=== PATIENT | male | born 1945 | race Caucasian/White ===

== ENCOUNTER 2017-08-25 05:31 | Inpatient (IN) | payer BC, OTHER ==
--- NOTE | 2017-08-25 06:26 | ED Physician Chart ---
ED Chief Complaint/HPI - Patient Information Date Seen:: 08/25/17 Time Seen:: 06:00 Chief Complaint:: numbness lt arm History of Present Illness:: 71 yr old male hx of cva mi in past who woke up at 330 am with numbness or dyscoordination lt arm no headache no dizziness or other c/o"s Allergies:: Allergies Allergy/AdvReac Type Severity Reaction Status Date / Time No Known Allergies Allergy Verified 08/25/17 06:03 Vitals:: Vital Signs - 8 hr 08/25/17 05:33 Temp 96.7 F HR 70 RR 18 BP 131/75 O2 Sat % 100 ED Review of Systems - Review of Systems General/Constitutional: No fever Skin: No skin lesions Eyes: No loss of vision ENT: No earache Neck: No neck pain Cardio Vascular: No chest pain Pulmonary: No SOB GI: No nausea G/U: No dysuria Musculoskeletal: No bone or joint pain Endocrine: No polyuria Hematopoietic: No bruising Allergic/Immuno: No urticaria Neurological: No syncope ED Past Medical History - Past Medical History Past Medical History: HTN, DM, CVA/TIA, Other (mi) Family History: Heart disease, Diabetes Mel[place] Social History: Smoker ED Physical Exam - Physical Examination Head: Atraumatic Eyes: Lids, conjuctiva normal Skin: Nl inspection ENMT: External ears, nose nl Neck: Nontender Respiratory: Nl effort/Exclusion Cardio Vascular: No murmur, gallop, rubs GI: No tenderness/rebounding/guarding Extremities: No tenderness or effusion Neuro/Psych: Alert/oriented, Normal motor strength Misc: Normal back ED Labs/Radiology/EKG Results - Lab Results Results: lt sided dyscoordination lt hand - EKG Interpretations EKG Time:: 05:58 Rate & Rhythm: NSR 68 Comments:: ANTEROSEPTAL MS AGE UNDETERMINED ED Assessment - Assessment General Assessment: LT HAND DYSCOORDINATION ED Septic Shock - . Is Septic Shock (SBP<90, OR Lactate>4 mmol\\L) present?: No - <6hrs of presentation: Vital Signs: Vital Signs - 8 hr 08/25/17 05:33 Temp 96.7 F HR 70 RR 18 BP 131/75 O2 Sat % 100 ED Reassessment (Disposition) - Reassessment Reassessment Condition:: Improved - Diagnosis Diagnosis:: LT HAND DYSCOORDINATION PREVIOUS CVA - Patient Disposition Discharge/Transfer:: Acute Care (other hosp)
[2017-08-25 06:45] LABS: % BASOPHILS 0.9 % (0.0-2.0); % EOSINOPHILS 1.9 % (0.0-5.0); % LYMPHOCYTES 15.8 % (20.0-50.0); % MONOCYTES 7.8 % (2.0-10.0); % NEUTROPHILS 73.6 % (40.0-80.0); BASOPHILE ABSOLUTE 0.1 Th/cumm (0-0.2); EOSINOPHILE ABSOLUTE 0.2 Th/cmm (0.1-0.4); HEMATOCRIT 25.9 % (41.0-60); LYMPHOCYTE ABSOLUTE 1.7 Th/cmm (1.5-3.0); MEAN CELL VOLUME 93.4 fl (80-99); MEAN CORPUSCULAR HEMOGLOBIN 32.5 pg (27.0-31.0); MEAN CORPUSCULAR HGB CONC 34.8 pg (28.0-36.0); MEAN PLATELET VOLUME 7.5 fl; MONOCYTE ABSOLUTE 0.9 Th/cmm (0.3-1.0); NEUTROPHILE ABSOLUTE 8.1 Th/cmm (1.8-8.0); PLATELET COUNT 287 Th/cmm (150-400); RED BLOOD COUNT 2.78 Mil/cmm (3.80-5.80); RED CELL DISTRIBUTION WIDTH 12.1 % (11.5-20.0)
[2017-08-25 07:07] LABS: ALB/GLOB RATIO 1.3 (1.0-1.8); ALBUMIN 3.9 gm/dL (4.2-5.5); ALKALINE PHOSPHATASE 45 U/L (34-104); ANION GAP 12.1 (7.0-16.0); BILIRUBIN,TOTAL 0.4 mg/dL (0.3-1.0); BUN - UREA NITROGEN 15 mg/dL (7-25); CALCIUM SERUM 9.3 mg/dL (8.6-10.3); CARBON DIOXIDE 23.6 mEq/L (21.0-31.0); CHLORIDE 105 mEq/L (98-107); CREATININE - SERUM 0.8 mg/dL (0.7-1.3); GFR AFRICAN-AMERICAN > 60.0 ml/min (>90); GFR NON AFRICAN-AMERICAN > 60.0 ml/min; GLUCOSE 218 mg/dL (70-105); INR 0.93 (0.5-1.4); POTASSIUM SERUM 3.7 mEq/L (3.5-5.1); PROTHROMBIN TIME (TEST) 9.7 SECONDS (9.5-11.5); SGOT 12 U/L (13-39); SGPT/ALT 8 U/L (7-52); SODIUM SERUM 137 mEq/L (136-145); TOTAL PROTEIN,SERUM 6.9 gm/dL (6.0-8.3)
[2017-08-25 07:45] LABS: URINE MICROSCOPIC INDICATED? YES; URINE SOURCE CLEAN C
[2017-08-25 07:48] LABS: URINE BILIRUBIN NEGATIVE (NEGATIVE); URINE BLOOD SMALL (NEGATIVE); URINE GLUCOSE (UA) 250 mg/dL (NEGATIVE); URINE KETONE NEGATIVE (NEGATIVE); URINE LEUKOCYTE ESTERASE NEGATIVE (NEGATIVE); URINE NITRATE NEGATIVE (NEGATIVE); URINE PROTEIN 30 mg/dL (NEGATIVE); URINE UROBILINOGEN 0.2 E.U./dL (0.2 - 1.0)
[2017-08-25 07:49] LABS: URINE CLARITY CLEAR (CLEAR); URINE COLOR YELLOW
[2017-08-25 07:52] LABS: URINE BACTERIA OCCASIONAL /hpf (NONE SEEN); URINE EPITHELIAL CELLS OCCASIONAL /lpf (FEW); URINE WBC 0-2 /hpf (0-5)
[2017-08-25] MEDS ORDERED: INSULIN HUMAN REGULAR 100 UNITS/ML UNIT SUBQ SCH (08:37)
[2017-08-25] MEDS ORDERED: INSULIN ASPART, RECOMBINANT 100 UNITS/ML SUBQ SCH (08:39)
[2017-08-25] MEDS: Enoxaparin 40 mg/0.4 mL 0.4mL Syr SUBQ SCH ×2 (09:22→10:17)
--- NOTE | 2017-08-25 09:41 | Diagnostic Imaging Report ---
Exam: CT examination of brain. HISTORY: Numbness left arm. Total DLP equals 694 CTDI equals 34.8 Findings: Multiple contiguous thin section of the brain were obtained from the base of skull to the vertex without the administration of contrast material, no prior studies available comparison. The study demonstrates prominence of cerebral sulci and ventricles consistent with atrophy. Atherosclerotic vascular changes are noted. There is no evidence for hemorrhage midline shift or edema. The cerebellum is intact. Old lacunar infarct in the left batres radiata noted. There is evidence of sinusitis. Bony calvarium is intact. IMPRESSION: Atrophy, periventricular white matter changes. Old infarct left batres radiata. Sinusitis
[2017-08-25] MEDS: INSULIN ASPART SLIDING SCALE 100 UNITS/ML UNIT SUBQ SCH ×3 (12:49→21:04)
--- NOTE | 2017-08-25 13:23 | History & Physical ---
ADMIT DATE: 08/25/2017 CHIEF COMPLAINT: Numbness of the left upper extremity for few hour duration. 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 No chest pain, no shortness of breath, no nausea, no vomiting, no fever, no chills. The patient evaluated by the ER physician. CT of the head significant for old stroke. The patient admitted to the hospital. Neurologic consultation obtained. The patient resumed his medication and diet. Carotid Doppler ordered. PAST MEDICAL HISTORY: Significant for hypertension, coronary artery disease, diabetes mellitus, hyperlipidemia, strokes. PAST SURGICAL HISTORY: No recent surgery. ALLERGIES: None. MEDICATIONS: Follow admission reconciliation. SOCIAL HISTORY: Ex-smoker, no alcohol, no drugs. FAMILY HISTORY: Noncontributory. REVIEW OF SYSTEMS: RENAL SYSTEM: No history of chronic renal disorder. CARDIOVASCULAR SYSTEM: He has history of coronary artery disease, stent placement. ENDOCRINE SYSTEM: No history of diabetes mellitus, no thyroid problem. GASTROINTESTINAL SYSTEM: No upper or lower GI bleed. NEUROLOGICAL SYSTEM: History of old stroke. SKELETOMUSCULAR SYSTEM: No muscular dystrophy. HEMATOLOGICAL SYSTEM: History of anemia. PHYSICAL EXAMINATION: GENERAL: He is awake, alert, oriented, not in pain or distress. VITAL SIGNS: Temperature 97.8, heart rate 115, blood pressure 138/90. HEENT: Normocephalic. Pupils reactive to light and accommodation. Sclerae clear. NECK: Supple. Negative for lymphadenopathy, JVD or bruit. CHEST: Entry of air bilaterally normal. No rales, rhonchi or wheezing. HEART: S1, S2 normal. No gallop rhythm. ABDOMEN: Soft, bowel sounds positive. EXTREMITIES: No edema. BACK: Nontender. SKIN: Intact. NEUROLOGIC: He is awake, alert, oriented. No focal motor deficit. There is numbness and tingling on the left upper extremity. LABORATORY AND DIAGNOSTIC DATA: White blood cell 11, hemoglobin 9, hematocrit 25.9 and platelet 287. Sodium 137, potassium 3.7, BUN 15, creatinine 0.8, glucose 204. Troponin less than 0.01. Albumin 3.9. ASSESSMENT: 1. TIA versus CVA. 2. Diabetes mellitus. 3. Hypertension. 4. Coronary artery disease. 5. Anemia. 6. Hyperlipidemia. PLAN: The patient admitted to the hospital under Dr. Enriquez's service. Start him on 1800 kilocalorie diet, sliding scale with Regular insulin coverage, Lovenox 40 subcu daily. Carotid Doppler ordered. Dr. May consulted on the case. MRI of the brain ordered. The patient is a full code. JOB# [id number]
[2017-08-25 18:30] LABS: A1C % 7.2 % (4.0-6.0)
[2017-08-26] MEDS: INSULIN ASPART SLIDING SCALE 100 UNITS/ML UNIT SUBQ SCH ×4 (07:55→21:56)
[2017-08-26] MEDS ORDERED: Non-Formulary Item 1 EA (Sitagliptin Phosphate [Januvia] 100 MG) PO SCH (09:00)
[2017-08-26] MEDS ORDERED: METFORMIN HCL 2000 MG PO SCH (09:00)
[2017-08-26] MEDS: Atorvastatin Calcium 10 MG TAB PO SCH (09:05)
[2017-08-26] MEDS: Enoxaparin 40 mg/0.4 mL 0.4mL Syr SUBQ SCH (09:06)
--- NOTE | 2017-08-26 09:34 | Diagnostic Imaging Report ---
Exam: Ultrasound summation of the extracranial carotid circulation HISTORY: CVA. Findings: Real-time ultrasound examination of the extracranial carotid circulation was performed multiple planes utilizing color Doppler technique. The study demonstrates of noncalcified plaque formation along the course of common carotid artery arising into the origin internal and external carotid arteries bilaterally. There is evidence for moderate calcified and soft plaque formation in the proximal right internal carotid artery with approximately 60% narrowing. The left internal carotid artery resulting calcified plaque formation produces approximately 50% narrowing The vertebral circulation demonstrates antegrade flow bilaterally. Right internal carotid artery ratio 1.0 Left internal carotid artery ratio 0.99 IMPRESSION Approximately 60% narrowing of the right internal carotid artery origin. Approximately 50% narrowing of the left internal carotid artery the origin.
[2017-08-26] MEDS ORDERED: Guaifenesin DM 10 ML UDC PO PRN (14:25)
--- NOTE | 2017-08-26 14:27 | Internal Medicine Prog Note ---
Internal Medicine Subjective - Subjective Service Date: 08/26/17 Patient seen and examined:: with staff Patient is:: awake, verbal, in bed, talking Patient Complaints of:: cough Per staff patient has:: no adverse event (HE STILL HAS NUMBNESS OF LEFT UPER EXTREM.) Internal Medicine Objective - Results Result Diagrams: 08/25/17 06:30 08/25/17 06:30 Recent Labs: Laboratory Last Values WBC 11.0 Th/cmm (4.8-10.8) H 08/25/17 06:30 RBC 2.78 Mil/cmm (3.80-5.80) L 08/25/17 06:30 Hgb 9.0 gm/dL (12-16) L 08/25/17 06:30 Hct 25.9 % (41.0-60) L 08/25/17 06:30 MCV 93.4 fl (80-99) 08/25/17 06:30 MCH 32.5 pg (27.0-31.0) H 08/25/17 06:30 MCHC Differential 34.8 pg (28.0-36.0) 08/25/17 06:30 RDW 12.1 % (11.5-20.0) 08/25/17 06:30 Plt Count 287 Th/cmm (150-400) 08/25/17 06:30 MPV 7.5 fl 08/25/17 06:30 Neutrophils % 73.6 % (40.0-80.0) 08/25/17 06:30 Lymphocytes % 15.8 % (20.0-50.0) L 08/25/17 06:30 Monocytes % 7.8 % (2.0-10.0) 08/25/17 06:30 Eosinophils % 1.9 % (0.0-5.0) 08/25/17 06:30 Basophils % 0.9 % (0.0-2.0) 08/25/17 06:30 PT 9.7 SECONDS (9.5-11.5) 08/25/17 06:30 INR 0.93 (0.5-1.4) 08/25/17 06:30 PTT (Actin FS) 27.8 SECONDS (26.0-38.0) 08/25/17 06:30 Sodium 137 mEq/L (136-145) 08/25/17 06:30 Potassium 3.7 mEq/L (3.5-5.1) 08/25/17 06:30 Chloride 105 mEq/L (98-107) 08/25/17 06:30 Carbon Dioxide 23.6 mEq/L (21.0-31.0) 08/25/17 06:30 Anion Gap 12.1 (7.0-16.0) 08/25/17 06:30 BUN 15 mg/dL (7-25) 08/25/17 06:30 Creatinine 0.8 mg/dL (0.7-1.3) 08/25/17 06:30 Est GFR ( Amer) > 60.0 ml/min (>90) 08/25/17 06:30 Est GFR (Non-Af Amer) > 60.0 ml/min 08/25/17 06:30 BUN/Creatinine Ratio 18.8 08/25/17 06:30 Glucose 218 mg/dL (70-105) H 08/25/17 06:30 POC Glucose 237 MG/DL (70 - 105) H 08/26/17 12:01 Hemoglobin A1c % 7.2 % (4.0-6.0) H 08/25/17 06:29 Calcium 9.3 mg/dL (8.6-10.3) 08/25/17 06:30 Total Bilirubin 0.4 mg/dL (0.3-1.0) 08/25/17 06:30 AST 12 U/L (13-39) L 08/25/17 06:30 ALT 8 U/L (7-52) 08/25/17 06:30 Alkaline Phosphatase 45 U/L (34-104) 08/25/17 06:30 Troponin I < 0.01 ng/mL (0.01-0.05) L 08/25/17 06:30 Total Protein 6.9 gm/dL (6.0-8.3) 08/25/17 06:30 Albumin 3.9 gm/dL (4.2-5.5) L 08/25/17 06:30 Globulin 3.0 gm/dL 08/25/17 06:30 Albumin/Globulin Ratio 1.3 (1.0-1.8) 08/25/17 06:30 Urine Source CLEAN C 08/25/17 07:35 Urine Color YELLOW 08/25/17 07:35 Urine Clarity CLEAR (CLEAR) 08/25/17 07:35 Urine pH 7.0 (4.6 - 8.0) 08/25/17 07:35 Ur Specific [place] 1.015 (1.005-1.030) 08/25/17 07:35 Urine Protein 30 mg/dL (NEGATIVE) H 08/25/17 07:35 Urine Glucose (UA) 250 mg/dL (NEGATIVE) H 08/25/17 07:35 Urine Ketones NEGATIVE mg/dL (NEGATIVE) 08/25/17 07:35 Urine Blood SMALL (NEGATIVE) H 08/25/17 07:35 Urine Nitrate NEGATIVE (NEGATIVE) 08/25/17 07:35 Urine Bilirubin NEGATIVE (NEGATIVE) 08/25/17 07:35 Urine Urobilinogen 0.2 E.U./dL (0.2 - 1.0) 08/25/17 07:35 Ur Leukocyte Esterase NEGATIVE (NEGATIVE) 08/25/17 07:35 Urine RBC 2-5 /hpf (0-5) H 08/25/17 07:35 Urine WBC 0-2 /hpf (0-5) 08/25/17 07:35 Ur Epithelial Cells OCCASIONAL /lpf (FEW) 08/25/17 07:35 Urine Bacteria OCCASIONAL /hpf (NONE SEEN) 08/25/17 07:35 Urine Mucus FEW /lpf (FEW) 08/25/17 07:35 Blood Type B POSITIVE 08/25/17 06:55 Antibody Screen NEGATIVE 08/25/17 06:55 - Physical Exam Vitals and I&O: Vital Signs Temp 97.2 F 08/26/17 11:31 Pulse 69 08/26/17 11:31 Resp 18 08/26/17 11:31 BP 129/71 08/26/17 11:31 Pulse Ox 98 08/26/17 11:31 Intake & Output 08/25/17 08/26/17 08/26/17 18:59 06:59 18:59 Intake Total 750 480 Balance 750 480 Weight (lbs) 64.41 kg 64.41 kg Intake: Oral 750 480 Other: # Voids 5 Weight Source Bedscale Bedscale Active Medications: Current Medications Aspirin (Ecotrin) 81 mg PO DAILY [facility] Stop: 10/25/17 08:59 Last Admin: 08/26/17 09:05 Dose: 81 mg Atorvastatin Calcium (Lipitor) 20 mg PO DAILY [facility]; Protocol Stop: 10/25/17 08:59 Last Admin: 08/26/17 09:05 Dose: 20 mg Carvedilol (Coreg) 6.25 mg PO BID [facility] Stop: 10/24/17 16:59 Last Admin: 08/26/17 09:03 Dose: 6.25 mg Clopidogrel Bisulfate (Plavix) 75 mg PO DAILY [facility] Stop: 10/25/17 08:59 Last Admin: 08/26/17 09:04 Dose: 75 mg Enoxaparin Sodium (Lovenox) 40 mg SUBQ DAILY [facility] Stop: 10/24/17 08:59 Last Admin: 08/26/17 09:06 Dose: 40 mg Famotidine (Pepcid) 40 mg PO DAILY [facility] Stop: 10/25/17 08:59 Last Admin: 08/26/17 10:05 Dose: 40 mg Insulin Aspart (Novolog Insulin Sliding Scale) 0 units SUBQ ACHS [facility]; Protocol Stop: 10/24/17 12:45 Last Admin: 08/26/17 12:26 Dose: 4 units Metformin HCl (Glucophage) 2,000 mg PO DAILY [facility] Stop: 10/25/17 08:59 Last Admin: 08/26/17 09:05 Dose: 2,000 mg Sitagliptin Phosphate (Januvia) 100 mg PO DAILY [facility] Stop: 10/25/17 08:59 Last Admin: 08/26/17 09:04 Dose: 100 mg HEENT: NC/AT, PERRLA, EOMI, anicteric sclerae, throat clear Neck: No JVD, No thyromegaly, +2 carotid pulse wo bruit, No LAD Lungs: CTAB Cardiovascular: Normal S1, Normal S2, without murmur Abdomen: non-tender, non-distended Extremities: clear Neurological: no change Internal Medicine Assmt/Plan - Assessment Assessment: 1.TIA CARMEN CVA. 2.CAD. 3.HTN. 4.COPD. - Plan Plan: ROBITUSSIN DM SYRUP TID
[2017-08-26] MEDS: Albuterol/Ipratropium Neb 3 ML AERS HHN SCH ×2 (15:48→23:52)
[2017-08-27] MEDS: Albuterol/Ipratropium Neb 3 ML AERS HHN SCH ×3 (07:31→22:12)
[2017-08-27] MEDS: INSULIN ASPART SLIDING SCALE 100 UNITS/ML UNIT SUBQ SCH ×4 (07:52→22:25)
[2017-08-27] MEDS: Atorvastatin Calcium 10 MG TAB PO SCH (08:50)
[2017-08-27] MEDS: Enoxaparin 40 mg/0.4 mL 0.4mL Syr SUBQ SCH (08:51)
[2017-08-27 09:01] LABS: % BASOPHILS 0.8 % (0.0-2.0); % EOSINOPHILS 2.5 % (0.0-5.0); % MONOCYTES 6.7 % (2.0-10.0); BASOPHILE ABSOLUTE 0.1 Th/cumm (0-0.2); EOSINOPHILE ABSOLUTE 0.2 Th/cmm (0.1-0.4); HEMOGLOBIN 12.4 gm/dL (12-16); MEAN CELL VOLUME 93.1 fl (80-99); MEAN CORPUSCULAR HEMOGLOBIN 31.3 pg (27.0-31.0); MEAN CORPUSCULAR HGB CONC 33.6 pg (28.0-36.0); MEAN PLATELET VOLUME 7.2 fl; MONOCYTE ABSOLUTE 0.5 Th/cmm (0.3-1.0); NEUTROPHILE ABSOLUTE 4.3 Th/cmm (1.8-8.0); PLATELET COUNT 251 Th/cmm (150-400); RED BLOOD COUNT 3.98 Mil/cmm (3.80-5.80); WHITE BLOOD COUNT 7.1 Th/cmm (4.8-10.8)
[2017-08-27 09:14] LABS: IRON LC 85 ug/dL (38-169); TIBC (LC) 210 ug/dL (250-450); UIBC 125 ug/dL (111-343)
--- NOTE | 2017-08-27 18:30 | Internal Medicine Prog Note ---
Internal Medicine Subjective - Subjective Service Date: 08/27/17 Patient seen and examined:: with staff (HE STILL HAS NUMBNESS OF LEFT SIDE.) Patient is:: awake, verbal, in bed, talking Patient Complaints of:: cough Per staff patient has:: no adverse event (HE STILL HAS NUMBNESS OF LEFT UPER EXTREM.) Internal Medicine Objective - Results Result Diagrams: 08/27/17 08:42 08/25/17 06:30 Recent Labs: Laboratory Last Values WBC 7.1 Th/cmm (4.8-10.8) 08/27/17 08:42 RBC 3.98 Mil/cmm (3.80-5.80) 08/27/17 08:42 Hgb 12.4 gm/dL (12-16) 08/27/17 08:42 Hct 37.0 % (41.0-60) L 08/27/17 08:42 MCV 93.1 fl (80-99) 08/27/17 08:42 MCH 31.3 pg (27.0-31.0) H 08/27/17 08:42 MCHC Differential 33.6 pg (28.0-36.0) 08/27/17 08:42 RDW 12.0 % (11.5-20.0) 08/27/17 08:42 Plt Count 251 Th/cmm (150-400) 08/27/17 08:42 MPV 7.2 fl 08/27/17 08:42 Neutrophils % 62.0 % (40.0-80.0) 08/27/17 08:42 Lymphocytes % 28.0 % (20.0-50.0) 08/27/17 08:42 Monocytes % 6.7 % (2.0-10.0) 08/27/17 08:42 Eosinophils % 2.5 % (0.0-5.0) 08/27/17 08:42 Basophils % 0.8 % (0.0-2.0) 08/27/17 08:42 PT 9.7 SECONDS (9.5-11.5) 08/25/17 06:30 INR 0.93 (0.5-1.4) 08/25/17 06:30 PTT (Actin FS) 27.8 SECONDS (26.0-38.0) 08/25/17 06:30 Sodium 137 mEq/L (136-145) 08/25/17 06:30 Potassium 3.7 mEq/L (3.5-5.1) 08/25/17 06:30 Chloride 105 mEq/L (98-107) 08/25/17 06:30 Carbon Dioxide 23.6 mEq/L (21.0-31.0) 08/25/17 06:30 Anion Gap 12.1 (7.0-16.0) 08/25/17 06:30 BUN 15 mg/dL (7-25) 08/25/17 06:30 Creatinine 0.8 mg/dL (0.7-1.3) 08/25/17 06:30 Est GFR ( Amer) > 60.0 ml/min (>90) 08/25/17 06:30 Est GFR (Non-Af Amer) > 60.0 ml/min 08/25/17 06:30 BUN/Creatinine Ratio 18.8 08/25/17 06:30 Glucose 218 mg/dL (70-105) H 08/25/17 06:30 POC Glucose 123 MG/DL (70 - 105) H 08/27/17 17:33 Hemoglobin A1c % 7.2 % (4.0-6.0) H 08/25/17 06:29 Calcium 9.3 mg/dL (8.6-10.3) 08/25/17 06:30 Iron 85 ug/dL (38-169) 08/26/17 06:00 TIBC 210 ug/dL (250-450) L 08/26/17 06:00 Iron Saturation 40 % (15-55) 08/26/17 06:00 Unsaturated IBC 125 ug/dL (111-343) 08/26/17 06:00 Total Bilirubin 0.4 mg/dL (0.3-1.0) 08/25/17 06:30 AST 12 U/L (13-39) L 08/25/17 06:30 ALT 8 U/L (7-52) 08/25/17 06:30 Alkaline Phosphatase 45 U/L (34-104) 08/25/17 06:30 Troponin I < 0.01 ng/mL (0.01-0.05) L 08/25/17 06:30 Total Protein 6.9 gm/dL (6.0-8.3) 08/25/17 06:30 Albumin 3.9 gm/dL (4.2-5.5) L 08/25/17 06:30 Globulin 3.0 gm/dL 08/25/17 06:30 Albumin/Globulin Ratio 1.3 (1.0-1.8) 08/25/17 06:30 Urine Source CLEAN C 08/25/17 07:35 Urine Color YELLOW 08/25/17 07:35 Urine Clarity CLEAR (CLEAR) 08/25/17 07:35 Urine pH 7.0 (4.6 - 8.0) 08/25/17 07:35 Ur Specific [place] 1.015 (1.005-1.030) 08/25/17 07:35 Urine Protein 30 mg/dL (NEGATIVE) H 08/25/17 07:35 Urine Glucose (UA) 250 mg/dL (NEGATIVE) H 08/25/17 07:35 Urine Ketones NEGATIVE mg/dL (NEGATIVE) 08/25/17 07:35 Urine Blood SMALL (NEGATIVE) H 08/25/17 07:35 Urine Nitrate NEGATIVE (NEGATIVE) 08/25/17 07:35 Urine Bilirubin NEGATIVE (NEGATIVE) 08/25/17 07:35 Urine Urobilinogen 0.2 E.U./dL (0.2 - 1.0) 08/25/17 07:35 Ur Leukocyte Esterase NEGATIVE (NEGATIVE) 08/25/17 07:35 Urine RBC 2-5 /hpf (0-5) H 08/25/17 07:35 Urine WBC 0-2 /hpf (0-5) 08/25/17 07:35 Ur Epithelial Cells OCCASIONAL /lpf (FEW) 08/25/17 07:35 Urine Bacteria OCCASIONAL /hpf (NONE SEEN) 08/25/17 07:35 Urine Mucus FEW /lpf (FEW) 08/25/17 07:35 Blood Type B POSITIVE 08/25/17 06:55 Antibody Screen NEGATIVE 08/25/17 06:55 - Physical Exam Vitals and I&O: Vital Signs Temp 98.5 F 08/27/17 16:00 Pulse 65 08/27/17 18:21 Resp 19 08/27/17 16:00 BP 148/75 08/27/17 18:21 Pulse Ox 98 08/27/17 16:00 Intake & Output 08/26/17 08/27/17 08/27/17 18:59 06:59 18:59 Intake Total 900 150 Output Total 0 Balance 900 150 Weight (lbs) 64.41 kg 63.503 kg Intake: Oral 900 150 Output: Stool 0 Other: # Voids 4 3 Weight Source Bedscale Bedscale Active Medications: Current Medications Albuterol/Ipratropium (Duoneb Neb) 3 ml HHN Q8HRT [facility] Stop: 10/25/17 14:59 Last Admin: 08/27/17 15:17 Dose: 3 ml Aspirin (Ecotrin) 81 mg PO DAILY [facility] Stop: 10/25/17 08:59 Last Admin: 08/27/17 08:50 Dose: 81 mg Atorvastatin Calcium (Lipitor) 20 mg PO DAILY [facility]; Protocol Stop: 10/25/17 08:59 Last Admin: 08/27/17 08:50 Dose: 20 mg Carvedilol (Coreg) 6.25 mg PO BID [facility] Stop: 10/24/17 16:59 Last Admin: 08/27/17 18:21 Dose: 6.25 mg Clopidogrel Bisulfate (Plavix) 75 mg PO DAILY [facility] Stop: 10/25/17 08:59 Last Admin: 08/27/17 08:51 Dose: 75 mg Enoxaparin Sodium (Lovenox) 40 mg SUBQ DAILY [facility] Stop: 10/24/17 08:59 Last Admin: 08/27/17 08:51 Dose: 40 mg Famotidine (Pepcid) 40 mg PO DAILY [facility] Stop: 10/25/17 08:59 Last Admin: 08/27/17 08:51 Dose: 40 mg Guaifenesin/Dextromethorphan (Robitussin Dm) 10 ml PO Q8HR PRN PRN Reason: Cough Stop: 10/25/17 14:24 Insulin Aspart (Novolog Insulin Sliding Scale) 0 units SUBQ ACHS [facility]; Protocol Stop: 10/24/17 12:45 Last Admin: 08/27/17 18:15 Dose: Not Given Metformin HCl (Glucophage) 2,000 mg PO DAILY [facility] Stop: 10/25/17 08:59 Last Admin: 08/27/17 08:51 Dose: 2,000 mg Sitagliptin Phosphate (Januvia) 100 mg PO DAILY [facility] Stop: 10/25/17 08:59 Last Admin: 08/27/17 08:52 Dose: 100 mg HEENT: NC/AT, PERRLA, EOMI, anicteric sclerae, throat clear Neck: No JVD, No thyromegaly, +2 carotid pulse wo bruit, No LAD Lungs: CTAB Cardiovascular: Normal S1, Normal S2, without murmur Abdomen: non-tender, non-distended Extremities: clear Neurological: no change Internal Medicine Assmt/Plan - Assessment Assessment: 1.TIA CARMEN CVA. 2.CAD. 3.HTN. 4.COPD. - Plan Plan: TRANSFER TO [facility] BY AMBULANCE. Nutritional Asmnt/Malnutr-PDOC - Dietary Evaluation Malnutrition Findings (Please click <Entered> for more info): Nutritional Asmnt/Malnutrition Start: 08/27/17 17: 44 Text: Status: Complete Freq: Protocol: Document 08/27/17 17:44 EVELING (Rec: 08/27/17 17:50 HENG [id number]) Nutritional Asmnt/Malnutrition Patient General Information Nutritional Screening High Risk Diagnosis TIA possible CVA Pertinent Medical Hx/Surgical Hx HTn, CAD, DM, hyperlipidemia, strokes Subjective Information Pt seen lying in bed at time of visit, awake and alert. Pt reported good appetite. Per EMR, PO intake 100% of meals. Admission glucose at 218 noted . Pt understands [facility] [place] diet, no need for more nutrition infamation. Current Diet Order/ Nutrition Support [facility] [place] Pertinent Medications novolog, glucophage, januvia Pertinent Labs 08/25 glucose 218, A1c 7.2 08/25-08/27 POC 112-229 Nutritional Hx/Data Height 1.73 m Height (Calculated Centimeters) 172.7 Current Weight (lbs) 63.503 kg Weight (Calculated Kilograms) 63.5 Weight (Calculated Grams) 20833.9 [place] Body Weight 154 Body Mass Index (BMI) 21.2 Weight Status Approriate GI Symptoms GI Symptoms None Last BM not indicated Difficult in: None Usual diet at home pt stated he has been following diabetic and monitoring BS at home. Skin Integrity/Comment: intact Current %PO Good (75-100%) Estimated Nutritional Goals BEE in Kcals: Using Current wt Calories/Kcals/Kg 25-30 Kcals Calculated 6477-5601 Protein: Using Current wt Protein g/k-1.2 Protein Calculated 63-76 Fluid: ml 1575-1890ml (1ml/kcal) Nutritional Problem 1. Problem Problem altered nutrition related labs Etiology hx of DM Signs/Symptoms: glucose 218, A1c 7.2, POC 112- 229 Malnutrition Alert Is there a minimum of two criteria No selected? Query Text:Check all the applicable criteria. A minimum of two criteria are recommended for diagnosis of either severe or non-severe malnutrition. Malnutrition Related to Morbid Obesity Malnutrition related to morbid obesity No Intervention/Recommendation Comments 1. Continue with [facility] [place] diet as ordered. 2. Monitor PO intake, wt, labs and skin integrity 3. F/U as moderate risk in 3-5 days,. 08/30-09/01 Expected Outcomes/Goals Expected Outcomes/Goals 1. PO intake to meet at least 75% of nutritional needs. 2. Wt stability, skin to remain intact, labs to approach WNL.
--- NOTE | 2017-09-14 21:01 | Discharge Summary ---
DATE OF DISCHARGE: 08/27/2017 FINAL DIAGNOSES: 1. Acute transient ischemic attack. 2. Diabetes mellitus. 3. Hypertension. 4. Coronary artery disease. 5. Hyperlipidemia. 6. Anemia. REVIEW OF HISTORY: The patient is a 71-year-old male with long history of hypertension, coronary artery disease, diabetes mellitus, old stroke, presented to the Emergency Room with numbness of the left upper extremity. The patient admitted to the hospital. Neurologic consultation obtained. PHYSICAL EXAMINATION: VITAL SIGNS: Temperature 97.8, heart rate 115, blood pressure 138/90. CHEST: Clear to auscultation. ABDOMEN: Soft, bowel sounds positive. EXTREMITIES: No edema. NEUROLOGIC: Significant for numbness and tingling of the left upper extremity. LABORATORY DATA: White blood cell 11, hemoglobin 9, hematocrit 25.9. Sodium 137, potassium 3.7, BUN 15, creatinine . The patient started on 1800 kilocalories diet, sliding scale with regular insulin coverage. COURSE OF HOSPITALIZATION: During hospitalization, the patient was seen by neurologist and the patient remained complaining of the numbness and tingling of the left upper extremity. On 08/26/2017, the patient denies any chest pain, shortness of breath, nausea, vomiting, fever or chills. DISPOSITION: On 08/27/2017, the patient transferred to [facility] to continue on his medication and for more investigation. CONDITION ON DISCHARGE: Stable. JOB# [id number]
== END 2017-08-27 22:20 | disposition short-term general hospital (02) | DRG 69 ==
LOC: ER 05:31 → MSI 07:35 → TELE 08:01
PROVIDERS: ADMIT Family Medicine; ATTEND Family Medicine
DX: G45.9 Transient cerebral ischemic attack, unspecified (principal); E11.9 Type 2 diabetes mellitus without complications; I10 Essential (primary) hypertension; D64.9 Anemia, unspecified; E78.5 Hyperlipidemia, unspecified; I25.10 Atherosclerotic heart disease of native coronary artery without angina pectoris; J44.9 Chronic obstructive pulmonary disease, unspecified; I25.2 Old myocardial infarction; Z82.49 Family history of ischemic heart disease and other diseases of the circulatory system; Z83.3 Family history of diabetes mellitus; Z87.891 Personal history of nicotine dependence
CPT/HCPCS: 36415-UA; 70450-TC; 80053-TC; 81001-TC; 82948-90; 83036-90; 83540-90; 83550-90; 84484-TC; 85025-TC; 85610-TC; 86850-TC; 86900-TC; 86901-TC; 93005; 93880-TC; 94640; 94760; J1650; J1815; Z7610